=== PATIENT | female | born 1990 | race Caucasian/White ===

== ENCOUNTER 2018-08-18 13:14 | Emergency (ER) | payer MEDICAID ==
[2018-08-18 14:11] LABS: PLATELET COUNT 185 10^3/uL (150-400)
[2018-08-18] MEDS ORDERED: NS 1,000 ML IV ONE (14:16)
[2018-08-18] MEDS ORDERED: ONDANSETRON 4 MG/2 ML VIAL IVP ONE (14:16)
[2018-08-18] MEDS ORDERED: HYDROmorphONE/DILAUDID 2 MG/ML INJ IVP ONE (14:16)
--- NOTE | 2018-08-18 14:16 | EDPHY ---
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 It is worse after she eats. She has seen her primary doctor several times and has trialed several types of antacids. She states that they seem to work for a week or 2 and then stopped working. She also stopped smoking and stopped eating spicy foods in an effort to control her symptoms but they have not seemed to work. She states that today her pain is worse than usual. She has felt nauseous but has not vomited. No diarrhea. No fever. No chest pain or shortness of breath. She denies risk of . No urinary symptoms. No vaginal symptoms. Severity: Moderate Modifying factors: She states that palpation of her right upper quadrant makes the pain better REVIEW OF SYSTEMS: Constitutional: denies: chills, fever, recent illness, recent injury EENTM: denies: blurred vision, double vision, nose congestion Respiratory: denies: cough, shortness of breath Cardiac: denies: chest pain, irregular heart rate, lightheadedness, palpitations Gastrointestinal/Abdominal: See HPI denies: diarrhea, vomiting, blood streaked stools Genitourinary: denies: dysuria, frequency, hematuria, pain Musculoskeletal: denies: joint pain, muscle pain Skin: denies: lesions, rash, jaundice, bruising Neurological: denies: headache, numbness, paresthesia, tingling, dizziness, weakness Hematologic/Lymphatic: denies: blood clots, easy bleeding, easy bruising Immunologic/allergic: denies: HIV/AIDS, transplant 10 systems reviewed and negative except as noted EXAM: GENERAL: Well-appearing, well-nourished and in no acute distress. HEAD: Atraumatic, normocephalic. EYES: Pupils equal round and reactive to light, extraocular movements intact, sclera anicteric, conjunctiva are normal. ENT: TMs normal, nares patent, oropharynx clear without exudates. Moist mucous membranes. NECK: Normal range of motion, supple without lymphadenopathy or JVD. LUNGS: Breath sounds clear to auscultation bilaterally and equal. No wheezes rales or rhonchi. HEART: Regular rate and rhythm without murmurs, rubs or gallops. ABDOMEN: Soft, nontender, normoactive bowel sounds. No guarding, no rebound. No masses appreciated. Pain improved with Pino's maneuver BACK: No CVA tenderness, no spinal tenderness, step-offs or deformities EXTREMITIES: Normal range of motion, no pitting or edema. No clubbing or cyanosis. NEUROLOGICAL: Cranial nerves II through XII grossly intact. Normal speech, normal gait. 5/5 strength, normal movement in all extremities, normal sensation , normal reflexes PSYCH: Normal mood, normal affect. SKIN: Warm, dry, normal turgor, no visible rashes or lesions. Source: Patient Exam Limitations: No limitations - Personal History LMP (Females 10-55): 8-14 Days Ago Current Tetanus/Diphtheria Vaccine: Yes Current Tetanus Diphtheria and Acellular Pertussis (TDAP): Yes - Medical/Surgical History Hx Asthma: No Hx Chronic Respiratory Disease: No Hx Diabetes: No Hx Cardiac Disease: No Hx Renal Disease: No Hx Cirrhosis: No Hx Alcoholism: No Hx HIV/AIDS: No Hx Splenectomy or Spleen Trauma: No Other PMH: tonsillectomy; tubal ligation - Family History Significant Family History: No pertinent family hx - Social History Smoking Status: Former smoker Alcohol Use: Sober Drug Use: None Constitutional: Initial Vital Signs Temperature (C) 36.7 C 08/18/18 13:21 Heart Rate 85 08/18/18 13:21 Respiratory Rate 16 08/18/18 13:21 Blood Pressure 122/82 H 08/18/18 13:21 O2 Sat (%) 98 08/18/18 13:21 O2 Delivery Mode Room Air Allergies/Adverse Reactions: Penicillins Allergy (Intermediate, Verified 12/20/13 12:26) Home Medications: Medication Instructions Recorded Ondansetron Odt [Zofran Odt] 4 mg PO Q6-8PRN PRN #10 tab 07/15/09 Nexplanon 12/20/13 Flexeril 10 MG (*) 08/18/18 Fluconazole [Diflucan (*)] 150 mg PO ONCE #1 tab 08/18/18 Nitrofurantoin Monohyd/M-Cryst 100 mg PO BID #20 cap 08/18/18 [Nitrofurantoin Walker-Macrocrystal] Sucralfate [Carafate] 1 gm PO QID #60 tab 08/18/18 Medical Decision Making - Diagnostics Imaging: Discussed imaging studies w/ [facility] [facility] Radiologist ED Course/Re-evaluation: 3:15 p.m. the patient is feeling much better. We discussed her lab work and ultrasound which are reassuring. Urinalysis pending. I will refer her to GI for upper endoscopy and add Carafate to her current and acid. She is agreeable with this plan. Abdominal exam is benign. 3:30 p.m. the patient's urinalysis does have leuk esterase. Will start her on Macrobid as well and prescribe her a single dose of Diflucan to use if needed. She states that she occasionally gets yeast infections on antibiotics. Differential Diagnosis: Partial list of the Differential diagnosis considered include but were not limited to; peptic ulcer disease, biliary disease and although unlikely based on the history and physical exam, I also considered pancreatic disease, hepatitis, appendicitis, , ovarian cyst, PID, urinary tract infection. I discussed these differential diagnoses and the plan with the patient as well as the usual and expected course. The patient understands that the diagnosis is provisional and that in medicine we are not always correct and that further workup is often warranted. Usual and customary warnings were given. All of the patient's questions were answered. The patient was instructed to return to the emergency department should the symptoms at all worsen or return, otherwise to followup with the physician as we discussed. - Data Points Laboratory Results: Laboratory Results 08/18/18 13:51 08/18/18 13:51 Medications Given: Discontinued Medications Al Hydroxide/Mg Hydroxide (Maalox Susp) 30 ml PO ONCE ONE Stop: 08/18/18 15:26 Last Admin: 08/18/18 15:32 Dose: 30 ml Hydromorphone HCl (Dilaudid) 0.5 mg IVP EDNOW ONE Stop: 08/18/18 14:17 Last Admin: 08/18/18 14:30 Dose: Not Given Hyoscyamine Sulfate (Levsin, Hyomax-Sl) 0.25 mg PO ONCE ONE Stop: 08/18/18 15:26 Last Admin: 08/18/18 15:31 Dose: 0.25 mg Sodium Chloride (Ns) 1,000 mls @ 0 mls/hr IV EDNOW ONE; Wide Open PRN Reason: Protocol Stop: 08/18/18 14:17 Last Admin: 08/18/18 14:23 Dose: 1,000 mls Ketorolac Tromethamine (Toradol) 15 mg IVP EDNOW ONE Stop: 08/18/18 14:20 Last Admin: 08/18/18 14:22 Dose: 15 mg Lidocaine (Lidocaine 2% Viscous) 15 ml PO ONCE ONE Stop: 08/18/18 15:26 Last Admin: 08/18/18 15:32 Dose: 15 ml Nitrofurantoin Macrocrystals (Macrobid) 100 mg PO EDNOW ONE PRN Reason: Protocol Stop: 08/18/18 15:26 Last Admin: 08/18/18 15:31 Dose: 100 mg Ondansetron HCl (Zofran) 4 mg IVP EDNOW ONE Stop: 08/18/18 14:17 Last Admin: 08/18/18 14:23 Dose: 4 mg Departure - Departure Disposition: Home, Routine, Self-Care Clinical Impression: Epigastric pain Urinary tract infection Qualifiers: Urinary tract infection type: acute cystitis Hematuria presence: without hematuria Qualified Code(s): N30.00 - Acute cystitis without hematuria Condition: Fair Instructions: Urinary Tract Infection in Women (ED), Epigastric Pain (ED) Referrals: ESTHELA FAUST [Primary Care Provider] - As per Instructions Ricardo Ham MD [Medical Doctor] - 5-7 days, call for appt. Prescriptions: Fluconazole [Diflucan (*)] 150 mg PO ONCE #1 tab Nitrofurantoin Monohyd/M-Cryst [Nitrofurantoin Walker-Macrocrystal] 100 mg PO BID #20 cap Sucralfate [Carafate] 1 gm PO QID #60 tab
[2018-08-18] MEDS ORDERED: KETOROLAC 30 MG/1 ML SDV IVP ONE (14:19)
[2018-08-18] MEDS ORDERED: LIDOCAINE 2% VISCOUS 15 ML UDCUP PO ONE (15:25)
[2018-08-18] MEDS ORDERED: MAG HYDROX/AL HYDROX/SIMETH 30 ML UDCUP PO ONE (15:25)
[2018-08-18] MEDS ORDERED: NITROFURANTOIN MACROBID 100 MG CAP PO ONE (15:25)
[2018-08-18] MEDS ORDERED: HYOSCYAMINE SULFATE 0.125 MG TAB PO ONE (15:25)
[2018-08-18 15:41] VITALS: BP 119/73
== END 2018-08-18 15:41 | disposition home or self-care (01) ==
DX: R10.13 Epigastric pain (principal); N30.00 Acute cystitis without hematuria
CPT/HCPCS: 96374; J1885; J2405